=== PATIENT | male | born 1950 | race Two or more races ===

== ENCOUNTER 2023-07-08 22:50 | Inpatient (IN) | payer MEDICARE, OTHER ==
[~2023-07-08] VITALS: Ht 172.7 cm; Wt 90.0 kg
[2023-07-08 23:32] LABS: Basophils # (auto) 0.1 10 ^3/uL (0-0.2); Basophils % (auto) 0.8 % (0.0-2.0); Eosinophils # (auto) 0.3 10 ^3/uL (0-0.8); Eosinophils % (auto) 2.7 % (0.0-7.0); Hematocrit 50.5 % (36.0-46.0); Hemoglobin 16.8 g/dL (12.2-16.2); Lymphocytes # (auto) 1.3 10 ^3/uL (0.4-5.4); Lymphocytes % (auto) 13.4 % (10.0-50.0); Mean Corpuscular Hemoglobin 31.6 pg (28.0-32.0); Mean Corpuscular Hgb Conc. 33.3 g/dL (32.0-36.0); Mean Corpuscular Volume 94.7 fL (80.0-100.0); Monocytes # (auto) 1.1 10 ^3/uL (0-1.3); Monocytes % (auto) 11.8 % (0.0-12.0); Neutrophils # (auto) 6.7 10 ^3/uL (1.6-8.6); Neutrophils % (auto) 71.3 % (37.0-80.0); Nucleated Red Blood Cells % 0.1 %; Red Blood Cells 5.33 10^6/uL (4.0-5.20); White Blood Cell 9.4 10^3/uL (4.4-10.8)
[2023-07-08 23:45] VITALS: PULSE 172; RESP 22; O2SAT 98
[2023-07-08 23:47] LABS: Alanine Aminotransferase 20 U/L (7-40); Albumin 4.4 g/dL (3.2-4.8); Alkaline Phosphatase 124 U/L (46-116); Anion Gap 9 (5-15); Aspartate Aminotransferase 30 U/L (13-40); BUN/Creatinine Ratio 11.3 (10.0-20.0); Bilirubin, Total 1.3 mg/dL (0.2-1.0); Blood Urea Nitrogen 17 mg/dL (9-23); Calcium 10.3 mg/dL (8.7-10.4); Carbon Dioxide 28 mmol/L (20-30); Chloride 103 mmol/L (98-107); Glucose 107 mg/dL (74-106); Potassium 4.6 mmol/L (3.5-5.1); Sodium 140 mmol/L (136-145)
[2023-07-09] VITALS (12 sets, daily range): BP systolic 95–144; BP diastolic 55–92; PULSE 52–101; RESP 16–20; TEMP 97.9–98.3; O2SAT 91–100
[2023-07-09] MEDS: ADENOSINE 6 MG/2 ML INJ IV ONE ×2 (00:18)
[2023-07-09] MEDS: dilTIAZem 25 MG/5 ML VIAL IV ONE ×3 (00:18→02:52)
[2023-07-09] MEDS ORDERED: DOCUSATE SOD 100 MG CAP PO PRN (01:45)
[2023-07-09] MEDS ORDERED: ONDANSETRON HCL 4 MG/2 ML VIAL IV PRN (01:45)
[2023-07-09] MEDS ORDERED: ACETAMINOPHEN 325 MG TAB PO PRN (01:45)
[2023-07-09] MEDS ORDERED: MORPHINE SULFATE INJ 2 MG/ml SYRG IV PRN (01:45)
[2023-07-09] MEDS ORDERED: NITROGLYCERIN 0.4 MG SL TAB SL PRN (01:45)
[2023-07-09] MEDS: ASPirin 81 mg TAB PO ONE (02:41)
[2023-07-09] MEDS: FUROSEMIDE 40 MG/4 ML VIAL IV ONE (02:43)
[2023-07-09] MEDS: CARVEDILOL 12.5 MG TAB PO ONE (04:43)
[2023-07-09 05:01] LABS: Urine Bacteria NONE SEEN /hpf (None Seen); Urine Blood Negative /uL (Negative); Urine Clarity Clear (Clear); Urine Protein, UAD Negative (Negative); Urine Specific Gravity 1.006 (1.001-1.035); Urine Urobilinogen Normal (Negative); Urine WBC <1 /hpf (0 - 3)
[2023-07-09 05:02] LABS: Urine Color Straw (Yellow)
[2023-07-09] MEDS: SODIUM CHLOR 0.9% PF (SALINE LOCK) 10ML VIAL/SYR IV SCH (06:30)
[2023-07-09] MEDS: FUROSEMIDE 40 MG/4 ML VIAL IV SCH (10:43)
[2023-07-09] MEDS: FAMOTIDINE (10MG/ML) 2ML VL IV SCH (10:44)
[2023-07-09] MEDS: HYDROcodone-ACET 5/325MG TAB PO PRN (10:44)
[2023-07-09] MEDS: ASPirin 81 mg TAB PO SCH (10:45)
[2023-07-09] MEDS: CARVEDILOL 12.5 MG TAB PO SCH (10:45)
[2023-07-09 12:29] LABS: Basophils # (auto) 0.1 10 ^3/uL (0-0.2); Basophils % (auto) 0.6 % (0.0-2.0); Eosinophils # (auto) 0.3 10 ^3/uL (0-0.8); Eosinophils % (auto) 2.9 % (0.0-7.0); Hematocrit 49.3 % (41.0-53.0); Hemoglobin 15.9 g/dL (13.5-17.5); Lymphocytes # (auto) 1.2 10 ^3/uL (0.4-5.4); Lymphocytes % (auto) 12.6 % (10.0-50.0); Mean Corpuscular Hemoglobin 30.9 pg (28.0-32.0); Mean Corpuscular Hgb Conc. 32.3 g/dL (32.0-36.0); Mean Corpuscular Volume 95.5 fL (80.0-100.0); Monocytes # (auto) 1.1 10 ^3/uL (0-1.3); Monocytes % (auto) 10.9 % (0.0-12.0); Nucleated Red Blood Cells % 0.1 %; Red Blood Cells 5.16 10^6/uL (4.5-5.90); White Blood Cell 9.7 10^3/uL (4.4-10.8)
[2023-07-09 13:29] LABS: Alanine Aminotransferase 18 U/L (7-40); Albumin 4.2 g/dL (3.2-4.8); Alkaline Phosphatase 117 U/L (46-116); Anion Gap 7 (5-15); Aspartate Aminotransferase 22 U/L (13-40); BUN/Creatinine Ratio 11.3 (10.0-20.0); Blood Urea Nitrogen 17 mg/dL (9-23); Calcium 9.8 mg/dL (8.5-10.1); Carbon Dioxide 26 mmol/L (20-30); Chloride 104 mmol/L (98-107); Glucose 123 mg/dL (74-106); LDL Cholesterol 86 mg/dL (< 100); Potassium 3.7 mmol/L (3.5-5.1); Sodium 137 mmol/L (136-145); Triglycerides 94 mg/dL (< 150)
[2023-07-09 13:30] LABS: Bilirubin, Total 1.7 mg/dL (0.2-1.0); Cholesterol 133 mg/dL (< 200); HDL Cholesterol 34 mg/dL (40-59); Total Protein 6.7 g/dL (5.7-8.2)
[2023-07-09 13:45] LABS: Magnesium 1.9 mg/dL (1.6-2.6)
[2023-07-09] MEDS ORDERED: FUROSEMIDE 20 MG/2 ML VIAL IV ONE (13:45)
[2023-07-09 14:13] LABS: INR 1.3 (0.9-1.15); Partial Thromboplastin Time 34.7 SEC (24.5-34.5); Prothrombin Time 13.4 sec (9.3-11.8)
[2023-07-09] MEDS: ANGIOMAX 250 MG VIAL IV ONE (17:21)
[2023-07-09] MEDS: VERAPAMIL 2.5MG/ML INJ 2ML VIAL IV ONE (17:21)
[2023-07-09] MEDS: fentaNYL CITRATE 100 MCG/2 ML VL ONE (17:21)
[2023-07-09] MEDS: HEPARIN SODIUM (PORCINE) 5000 UNITS/ML 1ML VIAL ONE (17:21)
[2023-07-09] MEDS: LIDOCAINE 2%HCL (LOCAL ANESTH.) INJ 20ML MDV ONE (17:22)
[2023-07-09] MEDS: IODIXANOL 320MG/ML 100ML BTL IV ONE (17:22)
[2023-07-09] MEDS: SODIUM CHL 0.9% 0 ML ONE (17:22)
[2023-07-09] MEDS: MIDAZOLAM HCL 2MG/2ML 2ml VIAL (1mg/ml) ONE (17:22)
[2023-07-09] MEDS: FUROSEMIDE 20 MG/2 ML VIAL IV SCH (19:01)
[2023-07-09] MEDS ORDERED: CARVEDILOL 12.5 MG TAB PO SCH (22:00)
[2023-07-09] MEDS: CARVEDILOL 3.125 MG TAB PO SCH (22:00)
[2023-07-09] MEDS: APIXABAN 5 MG TAB PO SCH (22:04)
[2023-07-10] VITALS (9 sets, daily range): BP systolic 107–129; BP diastolic 71–83; PULSE 59–85; RESP 16–20; TEMP 97.5–98.3; O2SAT 92–98
[2023-07-10 05:40] LABS: Basophils # (auto) 0.1 10 ^3/uL (0-0.2); Basophils % (auto) 0.9 % (0.0-2.0); Eosinophils # (auto) 0.4 10 ^3/uL (0-0.8); Eosinophils % (auto) 4.5 % (0.0-7.0); Hematocrit 47.2 % (41.0-53.0); Hemoglobin 15.7 g/dL (13.5-17.5); Lymphocytes # (auto) 1.3 10 ^3/uL (0.4-5.4); Lymphocytes % (auto) 15.5 % (10.0-50.0); Mean Corpuscular Hemoglobin 31.1 pg (28.0-32.0); Mean Corpuscular Hgb Conc. 33.3 g/dL (32.0-36.0); Mean Corpuscular Volume 93.5 fL (80.0-100.0); Monocytes # (auto) 0.9 10 ^3/uL (0-1.3); Monocytes % (auto) 11.3 % (0.0-12.0); Neutrophils # (auto) 5.6 10 ^3/uL (1.6-8.6); Neutrophils % (auto) 67.8 % (37.0-80.0); Nucleated Red Blood Cells % 0.1 %; Red Blood Cells 5.04 10^6/uL (4.5-5.90); Red Cell Distribution Width 13.8 % (11.8-14.3); White Blood Cell 8.3 10^3/uL (4.4-10.8)
[2023-07-10 05:50] LABS: Alanine Aminotransferase 16 U/L (7-40); Albumin 3.9 g/dL (3.2-4.8); Alkaline Phosphatase 110 U/L (46-116); Anion Gap 6 (5-15); BUN/Creatinine Ratio 11.9 (10.0-20.0); Bilirubin, Total 1.3 mg/dL (0.2-1.0); Blood Urea Nitrogen 19 mg/dL (9-23); Carbon Dioxide 30 mmol/L (20-30); Chloride 104 mmol/L (98-107); Glucose 87 mg/dL (74-106); Potassium 3.6 mmol/L (3.5-5.1); Sodium 140 mmol/L (136-145); Total Protein 6.5 g/dL (5.7-8.2)
[2023-07-10 06:08] LABS: Aspartate Aminotransferase 16 U/L (13-40)
[2023-07-10] MEDS: SPIRONOLACTONE 25 MG TAB PO SCH (10:00)
[2023-07-10] MEDS: NICOTINE 21MG/24 HR TOPICAL PATCH TD SCH (10:25)
[2023-07-10] MEDS: MAGNESIUM OXIDE 400 MG TAB PO SCH (10:25)
[2023-07-10] MEDS: CLOPIDOGREL BISULFATE 75 MG TAB PO SCH (10:26)
[2023-07-10] MEDS: EMPAGLIFLOZIN 10 MG TAB PO SCH (10:26)
[2023-07-10] MEDS: MELATONIN 5 MG TAB PO ONE (22:09)
[2023-07-11] VITALS (8 sets, daily range): BP systolic 100–120; BP diastolic 54–85; PULSE 61–94; RESP 17–20; TEMP 97.4–98.7; O2SAT 94–99
[2023-07-11 05:30] LABS: Basophils # (auto) 0.1 10 ^3/uL (0-0.2); Basophils % (auto) 0.8 % (0.0-2.0); Eosinophils # (auto) 0.3 10 ^3/uL (0-0.8); Eosinophils % (auto) 4.3 % (0.0-7.0); Hematocrit 48.1 % (41.0-53.0); Hemoglobin 16.4 g/dL (13.5-17.5); Lymphocytes # (auto) 1.2 10 ^3/uL (0.4-5.4); Lymphocytes % (auto) 15.8 % (10.0-50.0); Mean Corpuscular Hgb Conc. 34.1 g/dL (32.0-36.0); Mean Corpuscular Volume 93.8 fL (80.0-100.0); Monocytes # (auto) 1.1 10 ^3/uL (0-1.3); Monocytes % (auto) 13.8 % (0.0-12.0); Neutrophils # (auto) 5.1 10 ^3/uL (1.6-8.6); Neutrophils % (auto) 65.3 % (37.0-80.0); Nucleated Red Blood Cells % 0.1 %; Red Blood Cells 5.13 10^6/uL (4.5-5.90); Red Cell Distribution Width 13.7 % (11.8-14.3); White Blood Cell 7.8 10^3/uL (4.4-10.8)
[2023-07-11 05:41] LABS: Anion Gap 6 (5-15); Carbon Dioxide 31 mmol/L (20-30); Chloride 103 mmol/L (98-107); Potassium 3.6 mmol/L (3.5-5.1); Sodium 140 mmol/L (136-145)
[2023-07-11 05:42] LABS: Calcium 10.1 mg/dL (8.7-10.4)
[2023-07-11 05:47] LABS: BUN/Creatinine Ratio 17.3 (10.0-20.0); Glucose 97 mg/dL (74-106); Magnesium 2.1 mg/dL (1.6-2.6)
[2023-07-11 05:56] LABS: Blood Urea Nitrogen 30 mg/dL (9-23)
[2023-07-11] MEDS: LACTULOSE 20Gm/30ML SOLN PO ONE (15:12)
[2023-07-12 01:00] VITALS: BP 111/74; PULSE 75; RESP 18; TEMP 97.4; O2SAT 94
[2023-07-12 05:00] VITALS: BP 132/86; PULSE 78; RESP 18; TEMP 97.7; O2SAT 96
[2023-07-12 06:11] LABS: Anion Gap 7 (5-15); Carbon Dioxide 26 mmol/L (20-30); Chloride 105 mmol/L (98-107); Potassium 3.5 mmol/L (3.5-5.1); Sodium 138 mmol/L (136-145)
[2023-07-12 06:12] LABS: Calcium 9.9 mg/dL (8.7-10.4)
[2023-07-12 06:16] LABS: Glucose 90 mg/dL (74-106)
[2023-07-12 06:17] LABS: BUN/Creatinine Ratio 16.4 (10.0-20.0); Blood Urea Nitrogen 25 mg/dL (9-23); Magnesium 2.3 mg/dL (1.6-2.6)
[2023-07-12 06:33] LABS: Basophils # (auto) 0.1 10 ^3/uL (0-0.2); Basophils % (auto) 0.6 % (0.0-2.0); Eosinophils # (auto) 0.3 10 ^3/uL (0-0.8); Eosinophils % (auto) 3.7 % (0.0-7.0); Hematocrit 50.2 % (41.0-53.0); Lymphocytes # (auto) 1.1 10 ^3/uL (0.4-5.4); Lymphocytes % (auto) 12.5 % (10.0-50.0); Mean Corpuscular Hemoglobin 31.6 pg (28.0-32.0); Mean Corpuscular Hgb Conc. 33.8 g/dL (32.0-36.0); Mean Corpuscular Volume 93.5 fL (80.0-100.0); Monocytes # (auto) 1.1 10 ^3/uL (0-1.3); Neutrophils # (auto) 6.3 10 ^3/uL (1.6-8.6); Neutrophils % (auto) 71.2 % (37.0-80.0); Nucleated Red Blood Cells % 0.1 %; Red Blood Cells 5.37 10^6/uL (4.5-5.90); Red Cell Distribution Width 13.8 % (11.8-14.3); White Blood Cell 8.9 10^3/uL (4.4-10.8)
[2023-07-12 08:16] VITALS: BP 112/76; PULSE 65; PULSE 73; RESP 18; TEMP 97.7; O2SAT 95
[2023-07-12 09:00] VITALS: BP 112/76; PULSE 65; RESP 18; TEMP 97.7; O2SAT 95
[2023-07-12] MEDS: SACUBITRIL-VALSARTAN 24mg/26mg TAB PO SCH (11:14)
[2023-07-12] MEDS: CARVEDILOL 3.125 MG TAB PO SCH (11:17)
[2023-07-12 13:00] VITALS: BP 116/81; PULSE 81; RESP 16; TEMP 97.7; O2SAT 95
[2023-07-12 16:16] VITALS: BP 112/84; PULSE 81; RESP 14; TEMP 98.1; O2SAT 98
== END 2023-07-12 19:35 | DRG 280 ==
LOC: ER 22:50 → EDSEX 22:50 → TELE 07-09 01:31 → TELE-EAST 07-09 02:08
PROVIDERS: ADMIT Nurse Practitioner Family; ATTEND Family Medicine
PROC: 4A023N7 Measurement of Cardiac Sampling and Pressure, Left Heart, Percutaneous Approach (ICD-10-PCS; principal; 2023-07-09)
PROC: B211YZZ Fluoroscopy of Multiple Coronary Arteries using Other Contrast (ICD-10-PCS; 2023-07-09)
DX: I21.4 Non-ST elevation (NSTEMI) myocardial infarction (principal); I50.43 Acute on chronic combined systolic (congestive) and diastolic (congestive) heart failure; I47.19 Other supraventricular tachycardia; N17.9 Acute kidney failure, unspecified; I42.0 Dilated cardiomyopathy; E66.9 Obesity, unspecified; E78.00 Pure hypercholesterolemia, unspecified; G25.81 Restless legs syndrome; I25.41 Coronary artery aneurysm; I25.5 Ischemic cardiomyopathy; I50.82 Biventricular heart failure; K59.00 Constipation, unspecified; N18.9 Chronic kidney disease, unspecified; Z68.30 Body mass index [BMI] 30.0-30.9, adult
CPT/HCPCS: 36415; 71045; 80048; 80053; 80061; 81001; 83036; 83735; 83880; 84443; 84484; 85025; 85379; 85610; 85730; 93005; 93306; 93458; 97163; 99152; 99291; G0378; J0153; J2250; J3490; Q9967

== ENCOUNTER → 2023-08-24 | Outpatient (CLI) | payer MEDICARE ==
[2023-08-24 10:29] LABS: Basophils # (auto) 0.1 10 ^3/uL (0-0.2); Basophils % (auto) 0.7 % (0.0-2.0); Eosinophils # (auto) 0.3 10 ^3/uL (0-0.8); Eosinophils % (auto) 3.7 % (0.0-7.0); Hemoglobin 16.4 g/dL (13.5-17.5); Lymphocytes # (auto) 0.9 10 ^3/uL (0.4-5.4); Lymphocytes % (auto) 10.4 % (10.0-50.0); Mean Corpuscular Hemoglobin 31.1 pg (28.0-32.0); Mean Corpuscular Hgb Conc. 34.1 g/dL (32.0-36.0); Mean Corpuscular Volume 91.3 fL (80.0-100.0); Monocytes # (auto) 1.1 10 ^3/uL (0-1.3); Monocytes % (auto) 12.4 % (0.0-12.0); Neutrophils # (auto) 6.5 10 ^3/uL (1.6-8.6); Neutrophils % (auto) 72.8 % (37.0-80.0); Nucleated Red Blood Cells % 0.1 %; Red Blood Cells 5.26 10^6/uL (4.5-5.90); Red Cell Distribution Width 13.2 % (11.8-14.3); White Blood Cell 8.9 10^3/uL (4.4-10.8)
[2023-08-24 10:34] LABS: Alanine Aminotransferase 13 U/L (7-40); Albumin 4.7 g/dL (3.2-4.8); Alkaline Phosphatase 152 U/L (46-116); Anion Gap 9 (5-15); Aspartate Aminotransferase 17 U/L (13-40); BUN/Creatinine Ratio 21.6 (10.0-20.0); Bilirubin, Direct 0.5 mg/dL (<0.3); Bilirubin, Total 1.1 mg/dL (0.2-1.0); Blood Urea Nitrogen 40 mg/dL (9-23); Calcium 10.6 mg/dL (8.5-10.1); Carbon Dioxide 25 mmol/L (20-30); Chloride 102 mmol/L (98-107); Cholesterol 157 mg/dL (< 200); Glucose 116 mg/dL (74-106); HDL Cholesterol 29 mg/dL (40-59); LDL Cholesterol 109 mg/dL (< 100); Potassium 4.5 mmol/L (3.5-5.1); Sodium 136 mmol/L (136-145); Total Protein 7.8 g/dL (5.7-8.2); Triglycerides 134 mg/dL (< 150)
== END | disposition home or self-care (01) ==
LOC: LAB 09:24
PROVIDERS: ATTEND Student in an Organized Health Care Education/Training Program
DX: I25.5 Ischemic cardiomyopathy (principal); I21.4 Non-ST elevation (NSTEMI) myocardial infarction; R06.02 Shortness of breath
CPT/HCPCS: 36415; 80053; 80061; 80076; 85025

== ENCOUNTER → 2023-11-05 | Outpatient (CLI) | payer MEDICARE, MEDICAID ==
[~2023-11-05] MED LIST: ZOLP10TA PO
[2023-11-05 07:23] LABS: Alanine Aminotransferase 11 U/L (7-40); Albumin 4.3 g/dL (3.2-4.8); Alkaline Phosphatase 141 U/L (46-116); Anion Gap 8 (5-15); Aspartate Aminotransferase 11 U/L (13-40); BUN/Creatinine Ratio 13.9 (10.0-20.0); Blood Urea Nitrogen 29 mg/dL (9-23); Calcium 9.8 mg/dL (8.7-10.4); Carbon Dioxide 22 mmol/L (20-30); Chloride 107 mmol/L (98-107); Glucose 103 mg/dL (74-106); Potassium 4.4 mmol/L (3.5-5.1); Sodium 137 mmol/L (136-145)
[2023-11-05 07:24] LABS: Bilirubin, Total 0.8 mg/dL (0.2-1.0); Total Protein 7.1 g/dL (5.7-8.2)
== END | disposition home or self-care (01) ==
LOC: LAB 06:16
PROVIDERS: ATTEND Student in an Organized Health Care Education/Training Program
DX: I10 Essential (primary) hypertension (principal); E78.5 Hyperlipidemia, unspecified
CPT/HCPCS: 36415; 80053

== ENCOUNTER → 2024-03-02 | Outpatient (CLI) | payer MEDICARE, MEDICAID ==
[2024-03-02 09:55] LABS: Urine Bacteria None Seen /hpf (None Seen)
[2024-03-02 10:18] LABS: Basophils # (auto) 0 10 ^3/uL (0-0.2); Basophils % (auto) 0.6 % (0.0-2.0); Eosinophils # (auto) 0.4 10 ^3/uL (0-0.8); Eosinophils % (auto) 5.4 % (0.0-7.0); Hematocrit 47.2 % (41.0-53.0); Hemoglobin 15.7 g/dL (13.5-17.5); Lymphocytes % (auto) 12.6 % (10.0-50.0); Mean Corpuscular Hemoglobin 31.3 pg (28.0-32.0); Mean Corpuscular Hgb Conc. 33.4 g/dL (32.0-36.0); Mean Corpuscular Volume 93.8 fL (80.0-100.0); Monocytes # (auto) 0.8 10 ^3/uL (0-1.3); Neutrophils # (auto) 5.5 10 ^3/uL (1.6-8.6); Neutrophils % (auto) 71.4 % (37.0-80.0); Nucleated Red Blood Cells % 0.2 %; Platelet Count (auto) 192 10^3/uL (140-450); Red Blood Cells 5.03 10^6/uL (4.5-5.90); Red Cell Distribution Width 14.7 % (11.8-14.3); White Blood Cell 7.8 10^3/uL (4.4-10.8)
[2024-03-02 10:19] LABS: Urine Blood Negative /uL (Negative); Urine Clarity Clear (Clear); Urine Color Light-Yellow (Yellow); Urine Protein, UAD Negative (Negative); Urine Specific Gravity 1.014 (1.001-1.035); Urine Urobilinogen Normal (Negative); Urine WBC <1 /hpf (0 - 3)
[2024-03-02 10:43] LABS: Albumin 4.3 g/dL (3.2-4.8); Alkaline Phosphatase 143 U/L (46-116); Anion Gap 9 (5-15); Aspartate Aminotransferase < 8 U/L (13-40); BUN/Creatinine Ratio 11.7 (10.0-20.0); Bilirubin, Total 0.8 mg/dL (0.2-1.0); Blood Urea Nitrogen 30 mg/dL (9-23); Calcium 10.2 mg/dL (8.7-10.4); Carbon Dioxide 25 mmol/L (20-31); Chloride 107 mmol/L (98-107); Cholesterol 152 mg/dL (< 200); Glucose 99 mg/dL (74-106); HDL Cholesterol 43 mg/dL (40-59); LDL Cholesterol 100 mg/dL (< 100); Potassium 4.8 mmol/L (3.5-5.1); Sodium 141 mmol/L (136-145); Total Protein 7.3 g/dL (5.7-8.2); Triglycerides 73 mg/dL (< 150)
[2024-03-02 10:46] LABS: Alanine Aminotransferase < 9 U/L (7-40)
== END | disposition home or self-care (01) ==
LOC: LAB 08:46
PROVIDERS: ATTEND Internal Medicine
DX: Z13.1 Encounter for screening for diabetes mellitus (principal); I13.0 Hypertensive heart and chronic kidney disease with heart failure and stage 1 through stage 4 chronic kidney disease, or unspecified chronic kidney disease; N18.9 Chronic kidney disease, unspecified; I50.9 Heart failure, unspecified
CPT/HCPCS: 36415; 80053; 80061; 81001; 83036; 84439; 84443; 85025

== ENCOUNTER → 2024-03-09 | Outpatient (CLI) | payer MEDICARE, MEDICAID ==
[~2024-03-09] MED LIST changes: +HEPARIN 1,000 UNITS/ml 1ML VIAL IV ONE
--- NOTE | 2024-03-09 13:22 | DVHSR ---
APPROVED REPORT Indication Dyspnea Cardiomyopathy Cardiac Risk Factors Hypertension: Procedure The above named patient was injected with 25.1 mCi of [id number] tagged red blood cells. Gated imaging was then performed in left anterior oblique projections. Impression Normal MUGA study. Calculated left ventricular ejection fraction is 53 %. Normal left ventricular systolic function. The rest and stress images show normal perfusion, normal contraction and thickening. Mildly scan shows well-preserved left ventricular systolic function at 53%. Lower normal limit is 52 %.
== END | disposition home or self-care (01) ==
LOC: XYW 09:48
PROVIDERS: ATTEND Student in an Organized Health Care Education/Training Program
DX: I42.8 Other cardiomyopathies (principal); I10 Essential (primary) hypertension
CPT/HCPCS: 78472; A9560

== ENCOUNTER → 2024-06-14 | Outpatient (CLI) | payer MEDICARE, MEDICAID ==
[~2024-06-14] MED LIST changes: -HEPARIN 1,000 UNITS/ml 1ML VIAL IV ONE
[2024-06-14 09:32] LABS: Urine Bacteria None Seen /hpf (None Seen)
[2024-06-14 10:22] LABS: Basophils # (auto) 0 10 ^3/uL (0-0.2); Basophils % (auto) 0.4 % (0.0-2.0); Eosinophils # (auto) 0.4 10 ^3/uL (0-0.8); Eosinophils % (auto) 4.9 % (0.0-7.0); Hemoglobin 16.4 g/dL (13.5-17.5); Lymphocytes # (auto) 0.8 10 ^3/uL (0.4-5.4); Lymphocytes % (auto) 10.2 % (10.0-50.0); Mean Corpuscular Hemoglobin 31.1 pg (28.0-32.0); Mean Corpuscular Hgb Conc. 33.5 g/dL (32.0-36.0); Mean Corpuscular Volume 92.9 fL (80.0-100.0); Monocytes # (auto) 0.8 10 ^3/uL (0-1.3); Monocytes % (auto) 10.2 % (0.0-12.0); Neutrophils # (auto) 5.7 10 ^3/uL (1.6-8.6); Neutrophils % (auto) 74.3 % (37.0-80.0); Nucleated Red Blood Cells % 0.2 %; Platelet Count (auto) 188 10^3/uL (140-450); Red Blood Cells 5.27 10^6/uL (4.5-5.90); Red Cell Distribution Width 13.1 % (11.8-14.3); Urine Blood Negative /uL (Negative); Urine Clarity Clear (Clear); Urine Color Light-Yellow (Yellow); Urine Protein, UAD Negative (Negative); Urine Squamous Epithelial Cell None Seen /hpf (<5); Urine Urobilinogen Normal (Negative); Urine WBC < 1 /HPF (0-3); Urine pH 5.5 (5.0-9.0); White Blood Cell 7.7 10^3/uL (4.4-10.8)
[2024-06-14 10:40] LABS: Anion Gap 8 (5-15); BUN/Creatinine Ratio 14.3 (10.0-20.0); Calcium 10.4 mg/dL (8.7-10.4); Carbon Dioxide 27 mmol/L (20-31); Chloride 103 mmol/L (98-107); Glucose 98 mg/dL (74-106); Sodium 138 mmol/L (136-145); Triglycerides 96 mg/dL (< 150)
[2024-06-14 10:41] LABS: Albumin 4.7 g/dL (3.2-4.8); Bilirubin, Total 0.7 mg/dL (0.2-1.0); Cholesterol 178 mg/dL (< 200); HDL Cholesterol 43 mg/dL (40-59); Total Protein 7.4 g/dL (5.7-8.2)
[2024-06-14 10:55] LABS: Creatinine, Urine 47.57 mg/dL (30.0-125.0)
[2024-06-14 10:59] LABS: Alanine Aminotransferase < 9 U/L (7-40); Alkaline Phosphatase 163 U/L (46-116); Aspartate Aminotransferase 11 U/L (13-40); Blood Urea Nitrogen 38 mg/dL (9-23); LDL Cholesterol 124 mg/dL (< 100); Potassium 5.2 mmol/L (3.5-5.1)
== END | disposition home or self-care (01) ==
LOC: LAB 09:15
PROVIDERS: ATTEND Internal Medicine
DX: I13.0 Hypertensive heart and chronic kidney disease with heart failure and stage 1 through stage 4 chronic kidney disease, or unspecified chronic kidney disease (principal); I50.22 Chronic systolic (congestive) heart failure; N18.31 Chronic kidney disease, stage 3a; R73.03 Prediabetes; E78.5 Hyperlipidemia, unspecified; D68.9 Coagulation defect, unspecified; D68.69 Other thrombophilia; Z79.899 Other long term (current) drug therapy
CPT/HCPCS: 36415; 80053; 80061; 81001; 82043; 82570; 83036; 84439; 84443; 85025

== ENCOUNTER → 2024-09-04 | Outpatient (CLI) | payer MEDICARE, MEDICAID ==
[2024-09-04 11:46] LABS: Alanine Aminotransferase 11 U/L (7-40); Anion Gap 8 (5-15); BUN/Creatinine Ratio 13.2 (10.0-20.0); Calcium 10.3 mg/dL (8.7-10.4); Carbon Dioxide 25 mmol/L (20-31); Chloride 102 mmol/L (98-107); Magnesium 2.6 mg/dL (1.6-2.6); Potassium 4.7 mmol/L (3.5-5.1); Total Protein 7.9 g/dL (5.7-8.2)
[2024-09-04 11:47] LABS: Aspartate Aminotransferase 18 U/L (13-40)
[2024-09-04 11:48] LABS: Bilirubin, Total 0.7 mg/dL (0.2-1.0); Phosphorus 3.3 mg/dL (2.4-5.1)
[2024-09-04 11:49] LABS: Albumin 4.9 g/dL (3.2-4.8); Alkaline Phosphatase 163 U/L (46-116); Blood Urea Nitrogen 34 mg/dL (9-23); Glucose 112 mg/dL (74-106); Sodium 135 mmol/L (136-145)
== END | disposition home or self-care (01) ==
LOC: LAB 10:38
PROVIDERS: ATTEND Internal Medicine
DX: E11.22 Type 2 diabetes mellitus with diabetic chronic kidney disease (principal); N18.30 Chronic kidney disease, stage 3 unspecified; E11.21 Type 2 diabetes mellitus with diabetic nephropathy; E21.3 Hyperparathyroidism, unspecified; E55.9 Vitamin D deficiency, unspecified; M10.9 Gout, unspecified; N39.0 Urinary tract infection, site not specified; R80.9 Proteinuria, unspecified; D63.1 Anemia in chronic kidney disease
CPT/HCPCS: 36415; 80053; 82306; 83036; 83735; 83970; 84100

== ENCOUNTER → 2024-09-08 | Outpatient (CLI) | payer MEDICARE, MEDICAID ==
[2024-09-08 11:43] LABS: Urine Bacteria None Seen /hpf (None Seen)
[2024-09-08 13:52] LABS: Urine Blood Negative /uL (Negative); Urine Clarity Clear (Clear); Urine Color Light-Yellow (Yellow); Urine Protein, UAD Negative (Negative); Urine Squamous Epithelial Cell None Seen /hpf (<5); Urine Urobilinogen Normal (Negative); Urine pH 5.5 (5.0-9.0)
[2024-09-08 13:59] LABS: Urine WBC < 1 /HPF (0-3)
[2024-09-08 14:34] LABS: Protein, Urine 13.7 mg/dL (1-14)
[2024-09-08 14:37] LABS: Creatinine, Urine 58.01 mg/dL (30.0-125.0); Urine Protein/Creatinine Ratio 0.24
[2024-09-08 14:37] LABS: Creatinine, Urine 59.22 mg/dL (30.0-125.0)
== END | disposition home or self-care (01) ==
LOC: LAB 11:36
PROVIDERS: ATTEND Internal Medicine
DX: E11.22 Type 2 diabetes mellitus with diabetic chronic kidney disease (principal); N18.30 Chronic kidney disease, stage 3 unspecified; E11.21 Type 2 diabetes mellitus with diabetic nephropathy; D63.1 Anemia in chronic kidney disease; N39.0 Urinary tract infection, site not specified; R80.9 Proteinuria, unspecified; E21.3 Hyperparathyroidism, unspecified; M10.9 Gout, unspecified; E55.9 Vitamin D deficiency, unspecified
CPT/HCPCS: 36415; 81001; 82043; 82570; 84156

== ENCOUNTER 2024-11-01 07:35 | Outpatient (CLI) | payer MEDICARE, MEDICAID ==
[2024-11-02 08:07] LABS: Prostate Specific Antigen 5.2 ng/mL (0.0-4.0)
== END 2024-11-01 17:00 | disposition home or self-care (01) ==
LOC: LAB 07:35
PROVIDERS: ATTEND Internal Medicine
DX: Z12.5 Encounter for screening for malignant neoplasm of prostate (principal); Z12.11 Encounter for screening for malignant neoplasm of colon
CPT/HCPCS: 82274; 84154; G0103; 84153

== ENCOUNTER 2024-11-22 11:37 | Outpatient (CLI) | payer MEDICARE, MEDICAID ==
[2024-11-22 12:41] LABS: Urine Protein, UAD Negative (Negative)
[2024-11-22 12:46] LABS: Albumin 4.4 g/dL (3.2-4.8); Anion Gap 9 (5-15); BUN/Creatinine Ratio 13.6 (10.0-20.0); Calcium 9.1 mg/dL (8.7-10.4); Carbon Dioxide 24 mmol/L (20-31); Chloride 105 mmol/L (98-107); Magnesium 2.2 mg/dL (1.6-2.6); Potassium 4.2 mmol/L (3.5-5.1); Sodium 138 mmol/L (136-145); Total Protein 6.8 g/dL (5.7-8.2)
[2024-11-22 12:47] LABS: Bilirubin, Total 0.7 mg/dL (0.2-1.0)
[2024-11-22 12:49] LABS: Alanine Aminotransferase < 9 U/L (7-40); Alkaline Phosphatase 149 U/L (46-116); Blood Urea Nitrogen 33 mg/dL (9-23); Glucose 134 mg/dL (74-106)
[2024-11-22 13:12] LABS: Protein, Urine 7.8 mg/dL (1-14)
[2024-11-22 13:13] LABS: Microalb/Creat Ratio, Urine 5.00
== END 2024-11-22 17:00 | disposition home or self-care (01) ==
LOC: LAB 11:37
PROVIDERS: ATTEND Internal Medicine
DX: E11.22 Type 2 diabetes mellitus with diabetic chronic kidney disease (principal); N18.30 Chronic kidney disease, stage 3 unspecified; N39.0 Urinary tract infection, site not specified; R80.9 Proteinuria, unspecified; E21.3 Hyperparathyroidism, unspecified; M10.9 Gout, unspecified; D63.1 Anemia in chronic kidney disease; E66.9 Obesity, unspecified
CPT/HCPCS: 36415; 80053; 81001; 82043; 82306; 82570; 83036; 83735; 83970; 84100; 84156

== ENCOUNTER 2025-03-02 10:26 | Outpatient (CLI) | payer MEDICARE, MEDICAID ==
[2025-03-02 11:04] LABS: Hematocrit 48.4 % (41.0-53.0); Hemoglobin 16.6 g/dL (13.5-17.5); Mean Corpuscular Hemoglobin 31.3 pg (28.0-32.0); Mean Corpuscular Volume 91.4 fL (80.0-100.0); Nucleated Red Blood Cells % 0.2 %
[2025-03-02 11:10] LABS: Urine Protein, UAD TRACE (Negative); Urine WBC Clumps PRESENT /hpf (None Seen)
[2025-03-02 11:11] LABS: Protein, Urine 43.1 mg/dL (1-14)
[2025-03-02 11:13] LABS: Anion Gap 11.0 (5-15); Carbon Dioxide 26.0 mmol/L (20-31); Chloride 105.0 mmol/L (98-107); Potassium 4.8 mmol/L (3.5-5.1); Sodium 142.0 mmol/L (136-145)
[2025-03-02 11:15] LABS: Calcium 9.4 mg/dL (8.7-10.4)
[2025-03-02 11:19] LABS: BUN/Creatinine Ratio 13.1 (10.0-20.0); Glucose 101.0 mg/dL (74-106)
[2025-03-02 11:20] LABS: Albumin 4.3 g/dL (3.2-4.8)
[2025-03-02 11:25] LABS: Blood Urea Nitrogen 28.0 mg/dL (9-23)
[2025-03-02 11:41] LABS: Uric Acid 6.8 mg/dL (3.7-9.2)
== END 2025-03-05 17:00 | disposition home or self-care (01) ==
LOC: LAB 10:26
PROVIDERS: ATTEND Internal Medicine
DX: E11.22 Type 2 diabetes mellitus with diabetic chronic kidney disease (principal); N18.30 Chronic kidney disease, stage 3 unspecified; E11.21 Type 2 diabetes mellitus with diabetic nephropathy; E55.9 Vitamin D deficiency, unspecified; E21.3 Hyperparathyroidism, unspecified; D63.1 Anemia in chronic kidney disease; N39.0 Urinary tract infection, site not specified; M10.9 Gout, unspecified; R80.9 Proteinuria, unspecified
CPT/HCPCS: 36415; 80069; 81001; 82570; 83970; 84156; 84550; 85025

== ENCOUNTER 2025-03-13 06:45 | Outpatient (CLI) | payer MEDICARE, MEDICAID | END 2025-03-13 17:00 | disposition home or self-care (01) | LOC: LAB 06:45 | PROVIDERS: ATTEND Internal Medicine | DX: E11.22 Type 2 diabetes mellitus with diabetic chronic kidney disease (principal); N18.30 Chronic kidney disease, stage 3 unspecified; E11.21 Type 2 diabetes mellitus with diabetic nephropathy; E21.3 Hyperparathyroidism, unspecified; E55.9 Vitamin D deficiency, unspecified; N39.0 Urinary tract infection, site not specified; R80.9 Proteinuria, unspecified; D63.1 Anemia in chronic kidney disease; M10.9 Gout, unspecified | CPT/HCPCS: 87086 ==